=== PATIENT | female | born 1975 | race African-American/Black ===

== ENCOUNTER 2024-07-05 19:02 | Emergency (ER) | payer SELFPAY ==
[~2024-07-05] VITALS: Ht 160 cm; Wt 63.5 kg
[2024-07-05 19:06] VITALS: PULSE 76; RESP 18; TEMP 98.3
[2024-07-05 19:35] LABS: CLARITY,URINE SL CLOUDY (CLEAR); COLOR,URINE ORANGE (YELLOW); GLUCOSE, URINE 1+ (NEGATIVE); KETONES,URINE TRACE (NEGATIVE); LEUKOCYTE ESTERASE ,URINE TRACE (NEGATIVE); NITRITE,URINE POSITIVE (NEGATIVE); PH,URINE 8.5 (5 - 7); PROTEIN,URINE DIPSTICK 2+ (NEGATIVE); URINE UROBILINOGEN 1 mg/dL (0.2 - 1)
[2024-07-05 19:36] LABS: BILIRUBIN,URINE NEGATIVE (NEGATIVE)
[2024-07-05 19:38] LABS: BACTERIA,URINE FEW /HPF; WBC,URINE (MAN) 21-50 /HPF (0-5)
[2024-07-05 19:39] LABS: EPITHELIAL CELLS,URINE RARE /LPF; PREGNANCY TEST, URINE NEGATIVE (NEGATIVE)
[2024-07-05] MEDS ORDERED: CIPRO500 MG PO (19:50)
[2024-07-05] MEDS ORDERED: PYRIDIUM100 MG PO (19:50)
[2024-07-05] MEDS: KETOROLAC TROMETHAMINE 60 MG/2 ML VIAL IM ONE (19:51)
[2024-07-05 20:09] VITALS: BP 117/92; O2SAT 98
== END 2024-07-05 20:11 | disposition home or self-care (01) ==
LOC: ER 19:17
DX: R30.0 Dysuria (principal); N39.0 Urinary tract infection, site not specified; R10.30 Lower abdominal pain, unspecified; N80.9 Endometriosis, unspecified
CPT/HCPCS: 81001; 81025; 99283; J1885